=== PATIENT | male | born 1995 | race Caucasian/White ===

== ENCOUNTER 2021-08-29 18:48 | Emergency (ER) | payer BC ==
[2021-08-29] MEDS ORDERED: diphenhydrAMINE 50 MG/ML VIAL ONE (19:25)
[2021-08-29] MEDS ORDERED: Metoclopramide HCl 10 MG/2 ML VIAL ONE (19:25)
[2021-08-29 19:37] LABS: #Basophils 0.1 10x3/uL (0.0-0.2); #Eosinphils 0.2 10x3/uL (0.0-0.5); #Monocytes 0.9 10x3/uL (0.0-1.1); #Neutrophils 11.9 10x3/uL (1.5-8.4); %Basophils 0.5 % (0.0-2.0); %Eosinophils 1.3 % (0.0-6.0); %Lymphocytes 18.2 % (18.0-47.0); %Monocytes 5.4 % (0.0-10.0); %Neutrophils 74.2 % (40.0-75.0); ALT (SGPT) 32 U/L (8-55); AST (SGOT) 25 U/L (5-34); Albumin 4.8 g/dL (3.5-5.0); Alkaline Phosphatase 25 U/L (40-110); Anion Gap 19 mmol/L (10-20); BUN (Urea Nitrogen) 17 mg/dL (8.9-20.6); Bilirubin, Total 0.4 mg/dL (0.2-1.2); CRP (Inflammatory) Less than 0.50 mg/dL (= or < 0.5); Calc. Creatinine Clearance 0 mL/min (70-130); Calcium 9.9 mg/dL (7.8-10.44); Carbon Dioxide 21 mmol/L (22-29); Chloride 104 mmol/L (98-107); Globulin 3.1 g/dL (2.4-3.5); Glucose 171 mg/dL (70-105); Hemoglobin 15.2 g/dL (13.5-17.5); Mean Corpuscular HGB CONC 34.4 g/dL (32.0-36.0); Mean Corpuscular Hemoglobin 30.7 pg (27.0-33.0); Mean Corpuscular Volume 89.3 fl (81.2-95.1); Mean Platelet Volume 10.2 fl (7.4-10.4); Platelet Count 289 10x3/uL (150-450); Potassium 3.1 mmol/L (3.5-5.1); Protein, Total 7.9 g/dL (6.0-8.3); RBC Distribution Width 12.1 % (11.5-14.5); Red Blood Cell (RBC) Count 4.95 10x6/uL (4.32-5.72); Sodium 141 mmol/L (136-145); White Blood Cell (WBC) Count 16.1 10x3/uL (3.5-10.5)
[2021-08-29] MEDS ORDERED: Ketorolac Tromethamine 30 MG/ML VIAL ONE (20:43)
[2021-08-29] MEDS ORDERED: Ketamine 50 MG/ML (10ML VIAL) ONE (22:00)
[2021-08-29 22:26] LABS: CSF RBC Count - Manual 84 /cu.mm (None Seen); CSF Source CSF; CSF WBC/NonHematics Count-Man 2 /cu.mm (0-5); Clarity Clear (Clear); Tube # 1
[2021-08-29 22:27] LABS: CSF RBC Count - Manual 50 /cu.mm (None Seen); CSF Source CSF; CSF WBC/NonHematics Count-Man 1 /cu.mm (0-5); Clarity Clear (Clear); Tube # 4
[2021-08-29] MEDS ORDERED: Morphine 4 MG/ML VIAL ONE (23:39)
[2021-08-29] MEDS ORDERED: Promethazine HCl 25 MG/ML VIAL ONE (23:40)
[2021-08-29 23:46] LABS: SARS-CoV-2 NAA Rapid Test Not Detected (NotDetected)
[2021-08-30] MEDS ORDERED: Ondansetron PF 4 MG/2 ML Vial ONE (03:31)
== END 2021-08-30 04:04 | disposition short-term general hospital (02) ==
LOC: CSHERS 18:48
DX: R51.9 Headache, unspecified (principal); Z20.822 Contact with and (suspected) exposure to COVID-19
CPT/HCPCS: 62270; 70450; 80053; 82945; 84157; 85025; 86140; 87070; 87205; 89051; 96365; 96366; 96367; 96375; J1200; J1885; J2270; J2405; J2550; J2765